=== PATIENT | female | born 1965 | race Native Hawaiian/Other Pacific Islander ===

== ENCOUNTER 2021-07-22 11:39 | Emergency (ER) | payer OTHER, SELFPAY ==
[2021-07-22 11:45] VITALS: BP 124/64; PULSE 65; RESP 16; TEMP 36.6; O2SAT 99; BMI 23.8
[2021-07-22 12:21] LABS: Bacteria Urine None Seen
[2021-07-22 12:22] LABS: Appearance Urine UA SL CLOUDY; Bilirubin Urine UA NEGATIVE (NEGATIVE); Color Urine UA YELLOW; Glucose Urine UA NEGATIVE (Negative); Ketones Urine UA NEGATIVE (NEGATIVE); Leukocyte Esterase Urine UA 3+ (NEGATIVE); Nitrite Urine UA NEGATIVE (Negative); Occult Blood Urine UA 3+ (Negative); Protein Urine UA NEGATIVE (Negative); Specific Gravity Urine UA <=1.005 (1.000-1.035); Urobilinogen Urine UA 0.2 E.U./dL (0.2)
[2021-07-22 12:26] LABS: Culture Indicated Urine Specimen Cultured; RBC Urine 10-30/HPF (0-5/HPF); WBC Urine 30-100/HPF (0-5/HPF)
[2021-07-22] MEDS: NITROFURANTOIN ER 100 MG CAPSULE PO (13:55)
--- NOTE | 2021-07-22 14:07 | PC.NURSE ---
Patient requested record of today's visit. Okay to give per PA.
[2021-07-22 14:16] VITALS: BP 103/64; PULSE 65; RESP 18; O2SAT 99
--- NOTE | 2021-07-23 14:29 | ED.FEMALEGU ---
HPI - Female Genitourinary <Floridalma Escamilla PA-C - Last Filed: 07/23/21 14:48> General Chief complaint: Urogenital-Female Stated complaint: painful urination,blood in urine Time Seen by Provider: 07/22/21 13:28 Source: patient Mode of arrival: Ambulatory Limitations: no limitations History of Present Illness HPI Narrative: 56-year-old female with no significant past medical history, status post hysterectomy, bladder STEMI for urinary incontinence, presents to the ED with 2 days of dysuria, urgency. Denies fever, chills, flank pain, abdominal pain, nausea, vomiting, hematuria, history of frequent UTIs. Allergy to or NSAIDs. Related Data Allergies Allergy/AdvReac Type Severity Reaction Status Date / Time NSAIDS (Non-Steroidal Allergy Verified 07/22/21 13:30 Anti-Inflamma Review of Systems <Floridalma Escamilla PA-C - Last Filed: 07/23/21 14:48> Constitutional Constitutional: Denies chills, Denies fever(s), Denies lethargy and Denies weakness Cardiovascular Cardiovascular: Denies chest pain, Denies irregular heart rhythm, Denies lightheadedness, Denies palpitations, Denies dyspnea, Denies dyspnea on exertion and Denies orthopnea Respiratory Respiratory: Denies cough, Denies dyspnea, Denies dyspnea on exertion and Denies wheezing Gastrointestinal Gastrointestinal: Denies abdominal pain, Denies change in bowel habits, Denies diarrhea, Denies nausea and Denies vomiting Genitourinary Genitourinary: Denies hematuria, Reports dysuria and Reports urinary urgency Neurologic Neurologic: Denies weakness Endocrine Endocrine: Denies palpitations Allergic/Immunologic Allergic/Immunologic: Denies wheezing Patient History <DENICE Myles Last Filed: 07/23/21 14:48> alcohol intake frequency: 0-2 drinks per day Substance Use Type: does not use Exam <DENICE Myles Last Filed: 07/23/21 14:48> Initial Vital Signs Initial Vital Signs: Vital Signs Temperature 97.8 F 07/22/21 11:45 Pulse Rate 65 07/22/21 11:45 Respiratory Rate 16 07/22/21 11:45 Blood Pressure 124/64 07/22/21 11:45 Pulse Oximetry 99 07/22/21 11:45 Const General: cooperative Resp Effort & Inspection: normal respiratory effort, able to speak in complete sentences, no respiratory distress and no use of accessory muscles Auscultation: clear to auscultation bilaterally, no rales, no rhonchi and no wheezes Cardio Rate: regular rate Rhythm: regular rhythm Heart Sounds: no click, no gallops, no murmurs and no rubs Pulses: normal peripheral pulses GI Inspection: non-distended Palpation: soft, no hepatosplenomegaly, No guarding, No pulsatile mass and No tender Auscultation: normal bowel sounds General: No CVA tenderness Back/Spine/Pelvis Back: No CVA tenderness Cervical Spine: cervical ROM normal and No pain with cervical ROM Thoracic/Lumbar Spine: thoracic and lumbar spine normal to inspection <DO Alexandr Salinas Last Filed: 08/07/21 07:10> Initial Vital Signs Initial Vital Signs: Vital Signs Temperature 97.8 F 07/22/21 11:45 Pulse Rate 65 07/22/21 11:45 Respiratory Rate 16 07/22/21 11:45 Blood Pressure 124/64 07/22/21 11:45 Pulse Oximetry 99 07/22/21 11:45 Course <Floridalma Escamilla PA-C - Last Filed: 07/23/21 14:48> Orders Ordered: Discontinued Medications Nitrofurantoin Macrocrystals (Nitrofurantoin Er 100 Mg Capsule) 100 mg PO NOW ONE Stop: 07/22/21 13:41 Last Admin: 07/22/21 13:55 Dose: 100 mg Documented by: MARQUEZ <Andrews Smallwood DO - Last Filed: 08/07/21 07:10> Orders Ordered: Discontinued Medications Nitrofurantoin Macrocrystals (Nitrofurantoin Er 100 Mg Capsule) 100 mg PO NOW ONE Stop: 07/22/21 13:41 Last Admin: 07/22/21 13:55 Dose: 100 mg Documented by: MARQUEZ MDM - Female Genitourinary <Floridalma Escamilla PA-C - Last Filed: 07/23/21 14:48> Medical Records Medical records narrative: no medical records for review Lab Data Attestation: I reviewed the patient's lab results. Lab results narrative: 30-100 WBC, leukocyte esterase positive. Positive for UTI. Labs: Lab Results 07/22/21 Range/Units 11:50 Urine Color Yellow Urine Appearance Sl cloudy Urine pH 6.0 (4.5-8.0) Ur Specific [place] <=1.005 (1.000-1.035) Urine Protein Negative (Negative) Urine Glucose (UA) Negative (Negative) g/dL Urine Ketones Negative (NEGATIVE) Urine Occult Blood 3+ H (Negative) Urine Nitrate Negative (Negative) Urine Bilirubin Negative (NEGATIVE) Urine Urobilinogen 0.2 (0.2) E.U./dL Ur Leukocyte Esterase 3+ H (NEGATIVE) Urine RBC 10-30/hpf H (0-5/HPF) Urine WBC 30-100/hpf H (0-5/HPF) Urine Bacteria None seen (None) Ur Culture Indicated? Specimen cultured MDM Narrative Medical decision making narrative: 56-year-old female with no significant past medical history, status post hysterectomy, bladder STEMI for urinary incontinence, presents to the ED with 2 days of dysuria, urgency. Per patient history, PE, unlikely pyelonephritis likely uncomplicated acute cystitis. will order UA, reassess. Likely discharge home with PO abx. <Andrews Smallwood DO - Last Filed: 08/07/21 07:10> Lab Data Labs: Lab Results 07/22/21 Range/Units 11:50 Urine Color Yellow Urine Appearance Sl cloudy Urine pH 6.0 (4.5-8.0) Ur Specific [place] <=1.005 (1.000-1.035) Urine Protein Negative (Negative) Urine Glucose (UA) Negative (Negative) g/dL Urine Ketones Negative (NEGATIVE) Urine Occult Blood 3+ H (Negative) Urine Nitrate Negative (Negative) Urine Bilirubin Negative (NEGATIVE) Urine Urobilinogen 0.2 (0.2) E.U./dL Ur Leukocyte Esterase 3+ H (NEGATIVE) Urine RBC 10-30/hpf H (0-5/HPF) Urine WBC 30-100/hpf H (0-5/HPF) Urine Bacteria None seen (None) Ur Culture Indicated? Specimen cultured Discharge Plan Departure Patient Disposition: Home Clinical Impression: Urinary tract infection Instructions: DI for Urinary Tract Infection (UTI) <Andrews Smallwood DO - Last Filed: 08/07/21 07:10> Cosign ED Attending Cosignature Attestation: Dr Smallwood Co-Sign Statement: I was available for consultation during this patient's emergency department visit. This chart is signed by myself for administrative purposes only. I did not have direct contact with this patient during this visit. They were seen independently by the APC.
== END 2021-07-22 14:17 | disposition home or self-care (01) ==
PROVIDERS: Emergency Medicine; Emergency Provider Student in an Organized Health Care Education/Training Program
DX: N39.0 Urinary tract infection, site not specified (principal)
CPT/HCPCS: 81001; 87077; 87086; 87186; 99283